=== PATIENT | female | born 1965 | race Caucasian/White ===

== ENCOUNTER 2017-10-29 12:38 | Inpatient (IN) | payer OTHER ==
[~2017-10-29] VITALS: Ht 162.6 cm; Wt 73.7 kg
[2017-10-29] MEDS ORDERED: MONT10TA21 PO (12:55)
[2017-10-29] MEDS ORDERED: ALBU8HFA IH (12:55)
[2017-10-29] MEDS ORDERED: ALBUTEROL SULFATE 5 MG/ML 20 ML NEB SOLN [BULK] NEB ONE (13:00)
[2017-10-29] MEDS ORDERED: AMOX250C4 PO (13:00)
[2017-10-29] MEDS ORDERED: IPRATROPIUM BROMIDE 0.5 MG/2.5 ML NEB SOLUTION NEB ONE (13:00)
[2017-10-29] MEDS ORDERED: DEXAMETHASONE SOD PHOS 4 MG/ML 5 ML VIAL IM ONE (13:00)
[2017-10-29] MEDS ORDERED: OxyCODONE HCL/ACETAMINOPHEN 5-325 MG TABLET PO ONE (13:45)
[2017-10-29] MEDS ORDERED: SODIUM CHLORIDE 0.9% 1,000 ML IV ONE (15:00)
[2017-10-29 15:51] LABS: BASOPHILS % (AUTO) 0.6 % (0.0-2.0); EOSINOPHILS % (AUTO) 0.3 % (1.0-6.0); HEMATOCRIT 40.4 % (36-46); HEMOGLOBIN 13.7 g/dL (12.0-16.0); LYMPHOCYTES # (AUTO) 0.5 K/uL (1.0-4.8); MEAN CORPUSCULAR HEMOGLOBIN 31.3 pg (26.0-34.0); MEAN CORPUSCULAR HGB CONC 33.8 G/dL (31.0-37.0); MEAN CORPUSCULAR VOLUME 93 fL (80-100); MONOCYTES # (AUTO) 0.1 K/uL (0.1-1.0); MONOCYTES % (AUTO) 1.2 % (2.0-9.0); PLATELET COUNT (AUTO) 212 K/uL (150-450); RED BLOOD CELL COUNT(AUTO) 4.36 MIL/uL (4.00-5.20); RED CELL DISTRIBUTION WIDTH 14.8 % (11.5-14.5)
[2017-10-29 16:04] LABS: NEUTROPHILS % (AUTO) 92.9 % (40.0-70.0)
[2017-10-29 16:19] LABS: ALANINE AMINOTRANSFERASE 18 U/L (12-78); ALBUMIN 3.5 g/dL (3.4-5.0); ALKALINE PHOSPHATASE 104 U/L (46-116); ANION GAP 10 mmol/L (8-16); ASPARTATE AMINOTRANSFERASE 13 U/L (15-37); BILIRUBIN,TOTAL 0.3 mg/dL (0.1-1.0); CALCIUM, TOTAL 8.2 mg/dL (8.8-10.5); CARBON DIOXIDE 25 mmol/L (22-29); CHLORIDE 105 mmol/L (98-107); CREATININE 0.79 mg/dL (0.60-1.30); GLOMERULAR FILTR. RATE CALC > 60 mL/min (>60); GLUCOSE,RANDOM 203 mg/dL (70-110); SODIUM SERUM 140 mmol/L (136-145); TOTAL PROTEIN, SERUM 6.3 g/dL (6.4-8.2); UREA NITROGEN, BLOOD 9 mg/dL (7-18)
[2017-10-29 16:25] LABS: B-TYPE NATRIURETIC PEPTIDE 13 pg/mL (0-100)
[2017-10-29 16:30] LABS: INFLUENZA TYPE A NEGATIVE FOR TYPE A (NEGATIVE); INFLUENZA TYPE B NEGATIVE FOR TYPE B (NEGATIVE)
[2017-10-29] MEDS ORDERED: POTASSIUM CHLORIDE 20 MEQ ER TABLET PO ONE (16:45)
[2017-10-29 17:28] VITALS: BP 104/61
[2017-10-29] MEDS ORDERED: DEXTROSE 50%-WATER 25 GM/50 ML SYRINGE IVP PRN (17:45)
[2017-10-29] MEDS ORDERED: INFLUENZA VIRUS VACCINE QVS 2017-18 (3YR+)/PF 60 MCG/0.5 ML SYRINGE IM ONE (18:00)
[2017-10-29] MEDS: INSULIN ASPART 100 UNITS/ML SQ PRN (18:23)
[2017-10-29] MEDS: AZITHROMYCIN 500 MG/NS 250 ML IV SCH (18:44)
[2017-10-29] MEDS: MethylPREDNISolone SOD SUCC 125 MG/2 ML VIAL IVP SCH ×2 (18:44→23:29)
[2017-10-29 19:03] LABS: BILIRUBIN,URINE NEGATIVE (NEGATIVE); GLUCOSE, URINE (UA) 100 mg/dL (NEGATIVE); KETONES,URINE NEGATIVE (NEGATIVE); LEUKOCYTE ESTERASE ,URINE SMALL (NEGATIVE); NITRATE,URINE NEGATIVE (NEGATIVE); OCCULT BLOOD,URINE NEGATIVE (NEGATIVE); PH,URINE 6.5 (5.0-8.0); PROTEIN,URINE NEGATIVE (NEGATIVE); UROBILINOGEN,URINE 0.2 mg/dL (<=1.0)
[2017-10-29 19:09] VITALS: BP 111/55
[2017-10-29 19:09] LABS: AMPHET/METH SCREEN,URINE NEGATIVE (NEGATIVE); BARBITURATE SCREEN, URINE NEGATIVE (NEGATIVE); BENZODIAZEPINES SCREEN,URINE NEGATIVE (NEGATIVE); CANNABINOID SCREEN,URINE NEGATIVE (NEGATIVE); COCAINE SCREEN,URINE NEGATIVE (NEGATIVE); METHADONE SCREEN, URINE NEGATIVE (NEGATIVE); OPIATE SCREEN,URINE NEGATIVE (NEGATIVE); PHENCYCLIDINE SCREEN,URINE NEGATIVE (NEGATIVE)
[2017-10-29] MEDS: IPRATROPIUM BROMIDE 0.5 MG/2.5 ML NEB SOLUTION NEB PRN (19:23)
[2017-10-29] MEDS: ALBUTEROL SULFATE 2.5 MG/0.5 ML NEB SOLUTION NEB PRN (19:23)
[2017-10-29 19:31] LABS: APPEARANCE,URINE HAZY (CLEAR)
[2017-10-29 19:32] LABS: BACTERIA,URINE Few /HPF (None Seen); RBC,URINE None Seen /HPF (0-2)
[2017-10-29 19:33] LABS: SQUAMOUS EPITHELIAL CELL,UR Moderate /LPF (None Seen)
[2017-10-29] MEDS ORDERED: HYDROCODONE/ACETAMINOPHEN 5-325 MG TABLET PO PRN (19:45)
[2017-10-29] MEDS: HYDROCODONE/ACETAMINOPHEN 5-325 MG TABLET PO PRN (19:58)
[2017-10-29] MEDS ORDERED: MAGNESIUM HYDROXIDE SUSPENSION 30 ML UDCUP PO PRN (20:15)
[2017-10-29 20:55] VITALS: BP 110/55
[2017-10-29] MEDS: DOCUSATE SODIUM 100 MG CAPSULE PO SCH (21:32)
[2017-10-29] MEDS: HEPARIN SODIUM,PORCINE 5,000 UNITS/ML VIAL SQ SCH (23:28)
[2017-10-29 23:29] VITALS: BP 115/54
[2017-10-30] MEDS: IPRATROPIUM BROMIDE 0.5 MG/2.5 ML NEB SOLUTION NEB PRN ×3 (01:38→20:00)
[2017-10-30] MEDS: ALBUTEROL SULFATE 2.5 MG/0.5 ML NEB SOLUTION NEB PRN ×3 (01:38→20:00)
[2017-10-30 04:02] VITALS: BP 119/61
[2017-10-30] MEDS: MethylPREDNISolone SOD SUCC 125 MG/2 ML VIAL IVP SCH (05:30)
[2017-10-30] MEDS: GuaiFENesin/D-METHORPHAN [SUGAR-FREE] 200-20MG/10 ML SYRUP UDCUP PO PRN ×2 (06:23→16:27)
[2017-10-30] MEDS: HYDROCODONE/ACETAMINOPHEN 5-325 MG TABLET PO PRN ×2 (06:24→12:03)
[2017-10-30 06:31] LABS: BASOPHILS % (AUTO) 0.1 % (0.0-2.0); EOSINOPHILS % (AUTO) 0 % (1.0-6.0); HEMATOCRIT 40.7 % (36-46); HEMOGLOBIN 13.7 g/dL (12.0-16.0); LYMPHOCYTES # (AUTO) 0.4 K/uL (1.0-4.8); LYMPHOCYTES % (AUTO) 2.5 % (22.0-44.0); MEAN CORPUSCULAR HEMOGLOBIN 31.3 pg (26.0-34.0); MEAN CORPUSCULAR HGB CONC 33.7 G/dL (31.0-37.0); MEAN CORPUSCULAR VOLUME 93 fL (80-100); MONOCYTES # (AUTO) 0.1 K/uL (0.1-1.0); MONOCYTES % (AUTO) 0.9 % (2.0-9.0); PLATELET COUNT (AUTO) 279 K/uL (150-450); RED BLOOD CELL COUNT(AUTO) 4.38 MIL/uL (4.00-5.20); RED CELL DISTRIBUTION WIDTH 14.8 % (11.5-14.5)
[2017-10-30 06:48] LABS: NEUTROPHILS % (AUTO) 96.5 % (40.0-70.0)
[2017-10-30 07:10] LABS: ANION GAP 13 mmol/L (8-16); CALCIUM, TOTAL 8.8 mg/dL (8.8-10.5); CARBON DIOXIDE 20 mmol/L (22-29); CHLORIDE 106 mmol/L (98-107); CREATININE 0.86 mg/dL (0.60-1.30); GLOMERULAR FILTR. RATE CALC > 60 mL/min (>60); GLUCOSE,RANDOM 177 mg/dL (70-110); POTASSIUM 4.1 mmol/L (3.5-5.1); SODIUM SERUM 139 mmol/L (136-145); UREA NITROGEN, BLOOD 12 mg/dL (7-18)
[2017-10-30 07:14] VITALS: BP 117/53
[2017-10-30 07:29] LABS: HEMOGLOBIN A1C 5.8 % (4.5-6.2)
[2017-10-30] MEDS: ASPIRIN 81 MG CHEWABLE TABLET PO SCH (09:45)
[2017-10-30] MEDS: DOCUSATE SODIUM 100 MG CAPSULE PO SCH ×2 (09:45→22:01)
[2017-10-30] MEDS: HEPARIN SODIUM,PORCINE 5,000 UNITS/ML VIAL SQ SCH ×4 (09:46→23:31)
[2017-10-30] MEDS: MONTELUKAST SODIUM 10 MG TABLET PO SCH (09:46)
[2017-10-30] MEDS: PredniSONE 10 MG TABLET PO SCH (09:46)
[2017-10-30] MEDS: PANTOPRAZOLE SODIUM 40 MG DR TABLET PO SCH (09:48)
[2017-10-30] MEDS: CefTRIAXone SODIUM 1 GM in DEXTROSE 5%-WATER 10 ML IV SCH (09:49)
[2017-10-30 10:47] LABS: GLUCOMETER DEV NAME(LOC) PVLAB129; GLUCOSE,POINT OF CARE 254 MG/DL (70-110)
[2017-10-30 11:13] VITALS: BP 110/63
[2017-10-30] MEDS: INSULIN ASPART 100 UNITS/ML SQ PRN (12:08)
[2017-10-30 16:12] VITALS: BP 101/60
[2017-10-30 16:23] LABS: GLUCOMETER DEV NAME(LOC) PVLAB129; GLUCOSE,POINT OF CARE 195 MG/DL (70-110)
[2017-10-30] MEDS: AZITHROMYCIN 500 MG/NS 250 ML IV SCH (16:57)
[2017-10-30 19:23] LABS: GLUCOMETER DEV NAME(LOC) PVLAB129; GLUCOSE,POINT OF CARE 131 MG/DL (70-110)
[2017-10-30 19:25] VITALS: BP 100/63
[2017-10-30] MEDS: ACETAMINOPHEN 325 MG TABLET PO PRN (19:51)
[2017-10-30 22:12] LABS: GLUCOMETER DEV NAME(LOC) 5N 2R; GLUCOSE,POINT OF CARE 177 MG/DL (70-110)
[2017-10-30 23:48] VITALS: BP 100/58
[2017-10-31] MEDS: GuaiFENesin/D-METHORPHAN [SUGAR-FREE] 200-20MG/10 ML SYRUP UDCUP PO PRN ×2 (01:26→19:52)
[2017-10-31] MEDS: ACETAMINOPHEN 325 MG TABLET PO PRN (01:29)
[2017-10-31 04:59] VITALS: BP 133/73
[2017-10-31] MEDS: IPRATROPIUM BROMIDE 0.5 MG/2.5 ML NEB SOLUTION NEB PRN ×3 (07:03→20:01)
[2017-10-31] MEDS: ALBUTEROL SULFATE 2.5 MG/0.5 ML NEB SOLUTION NEB PRN ×3 (07:03→20:01)
[2017-10-31 07:06] VITALS: BP 120/72
[2017-10-31] MEDS: HEPARIN SODIUM,PORCINE 5,000 UNITS/ML VIAL SQ SCH ×2 (08:57→16:35)
[2017-10-31] MEDS: PANTOPRAZOLE SODIUM 40 MG DR TABLET PO SCH (08:57)
[2017-10-31] MEDS: PredniSONE 10 MG TABLET PO SCH (08:58)
[2017-10-31] MEDS: CHOLECALCIFEROL (VIT D3) 1,000 UNITS TABLET PO SCH (08:59)
[2017-10-31] MEDS: DOCUSATE SODIUM 100 MG CAPSULE PO SCH ×2 (08:59→19:52)
[2017-10-31] MEDS: ASPIRIN 81 MG CHEWABLE TABLET PO SCH (08:59)
[2017-10-31] MEDS: MONTELUKAST SODIUM 10 MG TABLET PO SCH (08:59)
[2017-10-31] MEDS: HYDROCODONE/ACETAMINOPHEN 5-325 MG TABLET PO PRN ×2 (09:15→16:56)
[2017-10-31] MEDS: CefTRIAXone SODIUM 1 GM in DEXTROSE 5%-WATER 10 ML IV SCH (10:22)
[2017-10-31 11:27] VITALS: BP 123/73
[2017-10-31 15:56] VITALS: BP 109/63
[2017-10-31 17:13] LABS: GLUCOMETER DEV NAME(LOC) PVLAB129; GLUCOSE,POINT OF CARE 106 MG/DL (70-110)
[2017-10-31 17:13] LABS: GLUCOMETER DEV NAME(LOC) PVLAB129; GLUCOSE,POINT OF CARE 119 MG/DL (70-110)
[2017-10-31 17:13] LABS: GLUCOMETER DEV NAME(LOC) PVLAB129; GLUCOSE,POINT OF CARE 145 MG/DL (70-110)
[2017-10-31 17:13] LABS: GLUCOMETER DEV NAME(LOC) PVLAB129; GLUCOSE,POINT OF CARE 135 MG/DL (70-110)
[2017-10-31] MEDS: INSULIN ASPART 100 UNITS/ML SQ PRN (17:16)
[2017-10-31] MEDS: AZITHROMYCIN 500 MG/NS 250 ML IV SCH (17:19)
[2017-10-31 20:33] VITALS: BP 101/54
[2017-11-01 00:34] VITALS: BP 115/62
[2017-11-01] MEDS: HEPARIN SODIUM,PORCINE 5,000 UNITS/ML VIAL SQ SCH ×2 (00:50→08:44)
[2017-11-01] MEDS: GuaiFENesin/D-METHORPHAN [SUGAR-FREE] 200-20MG/10 ML SYRUP UDCUP PO PRN (05:21)
[2017-11-01 05:33] LABS: GLUCOMETER DEV NAME(LOC) 6N 1E; GLUCOSE,POINT OF CARE 85 MG/DL (70-110)
[2017-11-01 05:44] VITALS: BP 111/75
[2017-11-01] MEDS: IPRATROPIUM BROMIDE 0.5 MG/2.5 ML NEB SOLUTION NEB PRN (07:15)
[2017-11-01] MEDS: ALBUTEROL SULFATE 2.5 MG/0.5 ML NEB SOLUTION NEB PRN (07:15)
[2017-11-01 07:35] VITALS: BP 106/48
[2017-11-01] MEDS: DOCUSATE SODIUM 100 MG CAPSULE PO SCH (08:43)
[2017-11-01] MEDS: ASPIRIN 81 MG CHEWABLE TABLET PO SCH (08:44)
[2017-11-01] MEDS: MONTELUKAST SODIUM 10 MG TABLET PO SCH (08:44)
[2017-11-01] MEDS: PANTOPRAZOLE SODIUM 40 MG DR TABLET PO SCH (08:44)
[2017-11-01] MEDS: PredniSONE 10 MG TABLET PO SCH (08:44)
[2017-11-01] MEDS: CHOLECALCIFEROL (VIT D3) 1,000 UNITS TABLET PO SCH (08:44)
[2017-11-01] MEDS ORDERED: SODIUM CHLORIDE 0.9% 100 ML ONE (08:52)
[2017-11-01] MEDS: CefTRIAXone SODIUM 1 GM in DEXTROSE 5%-WATER 10 ML IV SCH (09:16)
[2017-11-01] MEDS: HYDROCODONE/ACETAMINOPHEN 5-325 MG TABLET PO PRN (09:34)
[2017-11-01] MEDS ORDERED: VITAD1000 PO (09:47)
[2017-11-01] MEDS ORDERED: ASPI81 PO (09:47)
[2017-11-01] MEDS ORDERED: OMEP20 PO (09:48)
[2017-11-01] MEDS ORDERED: AZIT250T9 PO (09:49)
[2017-11-01] MEDS ORDERED: AUD NEB (09:49)
[2017-11-01] MEDS ORDERED: PRED5 PO (09:50)
[2017-11-01 11:45] VITALS: BP 116/68
[2017-11-01 11:59] LABS: GLUCOMETER DEV NAME(LOC) 6N 1E; GLUCOSE,POINT OF CARE 112 MG/DL (70-110)
[2017-11-01 17:23] LABS: GLUCOMETER DEV NAME(LOC) 6N 2D; GLUCOSE,POINT OF CARE 140 MG/DL (70-110)
== END 2017-11-01 12:30 | disposition home or self-care (01) | DRG 140 ==
LOC: EMS 12:39 → 5N 16:06 → 6N 10-31 18:40
PROVIDERS: ADMIT Internal Medicine; ATTEND Internal Medicine
PROC: 3E0234Z Introduction of Serum, Toxoid and Vaccine into Muscle, Percutaneous Approach (ICD-10-PCS; principal; 2017-10-29)
DX: J44.1 Chronic obstructive pulmonary disease with (acute) exacerbation (principal); J45.901 Unspecified asthma with (acute) exacerbation; J44.0 Chronic obstructive pulmonary disease with (acute) lower respiratory infection; J20.9 Acute bronchitis, unspecified; E87.6 Hypokalemia; R73.9 Hyperglycemia, unspecified; N39.0 Urinary tract infection, site not specified; E55.9 Vitamin D deficiency, unspecified; Z87.891 Personal history of nicotine dependence; Z90.710 Acquired absence of both cervix and uterus; Z79.899 Other long term (current) drug therapy; Z23 Encounter for immunization
CPT/HCPCS: 82306; 82962; 83036; 87086; 87804; 93005; 94640; 94644; 96360; 96372; 99285; J0456; J0696; J1100; J1644; J2930; J7030; J7050; J7060